=== PATIENT | male | born 1965 | race Caucasian/White ===

== ENCOUNTER 2016-10-11 14:40 | Emergency (ER) | payer OTHER ==
[2016-10-11 15:01] VITALS: BP 187/99
--- NOTE | 2016-10-11 15:21 | ED Physician Documentation ---
History of Present Illness - Stated complaint Stated Complaint: HIGH BP - Chief complaint Chief Complaint: General - History obtained from History obtained from: Patient - Additonal information Additional information: 51-year-old with history of hypertension, previously was on lisinopril/ hydrochlorothiazide and atenolol which managed his blood pressure. Recently he switched from that to losartan 100/hydrochlorothiazide 12.5+ metoprolol. I am not sure of the dose of metoprolol. Because he was having a cough with the lisinopril. Over the last few days has had uncontrolled blood pressures at home in the range of 180/100 with some funny feelings in his chest and head without overt chest pain or shortness of breath. He had labs a couple of days ago which were remarkable only for hypercholesterolemia and mild elevation in BUN without elevation in creatinine. Review of Systems Constitutional: denies: Fever, Chills Cardiac: denies: Chest pain / pressure, Palpitations, Pedal edema, Calf pain Respiratory: denies: Dyspnea, Cough PD PAST MEDICAL HISTORY - Present Medications Home Medications: Ambulatory Orders Medication Instructions Recorded Confirmed amLODIPine [Norvasc] 10 mg PO DAILY #30 tablet 10/11/16 - Allergies Allergies/Adverse Reactions: Allergies Allergy/AdvReac Type Severity Reaction Status Date / Time No Known Drug Allergies Allergy Verified 10/11/16 15:01 PD ED PE NORMAL - Vitals Vital signs reviewed: Yes - General General: Alert and oriented X 3, No acute distress - Cardiac Cardiac: RRR, No murmur - Respiratory Respiratory: No respiratory distress, Clear bilaterally - Abdomen Abdomen: Non tender - Extremities Extremities: No edema - Neuro Neuro: Alert and oriented X 3, Normal speech - Psych Psych: Normal mood, Normal affect Results - Vitals Vitals: Vital Signs - 24 hr 10/11/16 14:58 Temperature 36.6 C Heart Rate 85 Respiratory 16 Rate Blood Pressure 187/99 H O2 Saturation 99 Oxygen O2 Source Room air - EKG (time done) 1523 Rate: Rate (enter#) (80) Rhythm: NSR [place]: Normal Intervals: Normal [place] QRS: Normal Ischemia: Normal ST segments Computer interpretation: Agree with computer PD MEDICAL DECISION MAKING - ED course ED course: 51-year-old gentleman presents with uncontrolled blood pressure on new medications. We discussed putting him back on his old medications but he says the cough with lisinopril was pretty bad and he did not want to do that so I will add amlodipine pending follow-up with his physician. Departure - Departure Disposition: Home, Self Care Clinical Impression: Hypertension Qualifiers: Hypertension type: essential hypertension Qualified Code(s): I10 - Essential ( primary) hypertension Condition: Good Record reviewed to determine appropriate education?: Yes Instructions: Amlodipine, Hypertension Dc Follow-Up: Ronny Mcfarland MD [Primary Care Provider] - Within 1 week Prescriptions: amLODIPine [Norvasc] 10 mg PO DAILY #30 tablet Comments: Continue your current medications for blood pressure and add the amlodipine. Follow-up with Dr. mcfarland this coming Wednesday as scheduled for recheck.
== END 2016-10-11 15:49 | disposition home or self-care (01) ==
LOC: ED 14:40
DX: I10 Essential (primary) hypertension (principal)
CPT/HCPCS: 93005; 99283; 99284

== ENCOUNTER 2016-10-23 08:34 | Outpatient (CLI) | payer OTHER ==
[2016-10-28 22:36] LABS: TEST RESULT REPORT (())
== END 2016-10-23 08:35 | disposition home or self-care (01) ==
LOC: LAB.R 08:34
PROVIDERS: ATTEND Internal Medicine
DX: E29.1 Testicular hypofunction (principal); R53.83 Other fatigue
CPT/HCPCS: 81599; 84402; 84403

== ENCOUNTER 2017-02-19 08:00 | Outpatient (CLI) | payer OTHER | END 2017-02-19 08:01 | disposition home or self-care (01) | LOC: LAB.R 08:00 | PROVIDERS: ATTEND Internal Medicine | DX: R50.9 Fever, unspecified (principal) | CPT/HCPCS: 87275; 87276 ==

== ENCOUNTER 2017-08-04 11:52 | Emergency (ER) | payer OTHER ==
[2017-08-04 13:03] LABS: BASOPHILS % (AUTO) 0.5 %; EOSINOPHILS # (AUTO) 0.2 10^3/uL (0.0-0.7); EOSINOPHILS % (AUTO) 2.1 %; HGB - HEMOGLOBIN 16.4 g/dL (14.0-18.0); LYMPHOCYTES % (AUTO) 27.5 %; MEAN CORPUSCULAR HEMOGLOBIN 30.9 pg (27.0-31.0); MEAN CORPUSCULAR VOLUME 90.7 fL (80.0-94.0); MEAN PLATELET VOLUME 7.4 fL (7.4-11.4); MONOCYTES # (AUTO) 0.5 10^3/uL (0.0-1.0); MONOCYTES % (AUTO) 6.8 %; NEUTROPHILS # (AUTO) 4.7 10^3/uL (1.5-6.6); NEUTROPHILS % (AUTO) 63.1 %; PLT - PLATELET COUNT 209 10^3/uL (130-450); RED CELL DISTRIBUTION WIDTH 14.1 % (12.0-15.0); WHITE BLOOD COUNT 7.4 x10^3/uL (4.8-10.8)
--- NOTE | 2017-08-04 13:09 | XRAY Report ---
Procedure Date: 08/04/2017 Accession Number: [id number] / [id number] Procedure: XR - Chest 2 View X-Ray CPT Code: 24787 FULL RESULT: EXAM: CHEST RADIOGRAPHY EXAM DATE: 08/04/2017 12:55 PM. CLINICAL HISTORY: Chest pain for one week. COMPARISON: None. TECHNIQUE: 2 views. FINDINGS: Lungs/Pleura: No focal opacities evident. No pleural effusion. No pneumothorax. Normal volumes. Mediastinum: Heart and mediastinal contours are unremarkable. Other: Mild thoracic spine degenerative changes. IMPRESSION: No consolidation evident. RADIA
--- NOTE | 2017-08-04 13:13 | ED Physician Documentation ---
PD HPI CHEST PAIN - Stated complaint Stated Complaint: CHEST PX - Chief complaint Chief Complaint: Cardiac - History obtained from History obtained from: Patient - History of Present Illness Timing - onset: How many weeks ago (1-2) Timing - duration: Weeks (has had pains in back intermittently for month or more , but worse the past week. No noted injury directly. Worse with moving, position. No change with eating. No dyspnea. Pain between shoulder blades and wraps around to the front of chest/ribs area.) Timing - details: Gradual onset, Still present (more often the past week and more consistent the past few days.), Intermittant Quality: Aching, Sharp, Pain Location: Left chest, Upper back Radiation: Back Worsened by: Inspiration, Movement. No: Eating, Palpation Associated symptoms: No: Shortness of air, Nausea, Feeling faint / dizzy, General Weakness, Palpitations Similar symptoms before: Has not had sx before Recently seen: Not recently seen Review of Systems Constitutional: denies: Fever, Chills, Myalgias Nose: denies: Rhinorrhea / runny nose, Congestion Throat: denies: Sore throat Cardiac: reports: Chest pain / pressure. denies: Palpitations, Pedal edema, Calf pain Respiratory: denies: Dyspnea, Cough, Wheezing GI: denies: Abdominal Pain, Nausea, Vomiting, Diarrhea : denies: Dysuria, Frequency, Hematuria Skin: denies: Rash, Lesions Musculoskeletal: reports: Back pain. denies: Neck pain, Extremity pain Neurologic: denies: Generalized weakness, Near syncope Endocrine: denies: Weight loss, Easy bruising / bleeding PD PAST MEDICAL HISTORY - Past Medical History Cardiovascular: None Respiratory: None Endocrine/Autoimmune: None GI: None - Present Medications Home Medications: Ambulatory Orders Medication Instructions Recorded Confirmed Dexamethasone [Decadron] 4 mg PO DAILY #5 tablet 08/04/17 Doxazosin Mesylate 2 mg 08/04/17 HYDROcod/ACETAM 5/325 [[place] 5/325] 1 tab PO Q6H PRN #20 tablet 08/04/17 Methocarbamol [Robaxin] 500 mg PO Q6H PRN #25 tablet 08/04/17 Metoprolol Succinate 50 mg BID 08/04/17 08/04/17 Naproxen 375 mg PO BID #20 tablet 08/04/17 Valsartan 160 mg 08/04/17 hydroCHLOROthiazide [Hydrodiuril] 25 mg 08/04/17 - Allergies Allergies/Adverse Reactions: Allergies Allergy/AdvReac Type Severity Reaction Status Date / Time No Known Drug Allergies Allergy Verified 10/11/16 15:01 - Family History Family history: reports: Non contributory PD ED PE NORMAL - Vitals Vital signs reviewed: Yes - General General: Alert and oriented X 3, No acute distress, Well developed/nourished - HEENT HEENT: Pharynx benign - Neck Neck: Supple, no meningeal sign, No adenopathy - Cardiac Cardiac: RRR, No murmur - Respiratory Respiratory: Clear bilaterally, Other (no chestwall tenderness) - Abdomen Abdomen: Normal bowel sounds, Soft, Non tender, Non distended - Derm Derm: Normal color, Warm and dry - Extremities Extremities: No deformity, No tenderness to palpate, Normal ROM s pain, No edema , No calf tenderness / cord - Neuro Neuro: Alert and oriented X 3, No motor deficit, Normal speech Results - Vitals Vitals: Oxygen O2 Source Room air - EKG (time done) 11:57 Rate: Rate (enter#) (64) Rhythm: NSR [place]: Normal Intervals: Normal [place] QRS: Normal Ischemia: Normal ST segments. No: ST elevation c/w ischemia, ST depression - Labs Labs: Laboratory Tests 08/04/17 08/04/17 08/04/17 13:00 13:00 13:00 WBC 7.4 RBC 5.30 Hgb 16.4 Hct 48.1 MCV 90.7 MCH 30.9 MCHC 34.0 RDW 14.1 Plt Count 209 MPV 7.4 Neut # (Auto) 4.7 Lymph # (Auto) 2.0 Dunn # (Auto) 0.5 Eos # (Auto) 0.2 Baso # (Auto) 0.0 Absolute Nucleated RBC 0.00 Nucleated RBC % 0.1 Sodium 139 Potassium 4.0 Chloride 104 Carbon Dioxide 27 Anion Gap 8.0 BUN 17 Creatinine 0.8 Estimated GFR (MDRD) 102 Glucose 97 Calcium 9.5 Total Bilirubin 0.9 AST 26 ALT 35 Alkaline Phosphatase 67 Troponin I < 0.04 Total Protein 7.1 Albumin 4.2 Globulin 2.9 Albumin/Globulin Ratio 1.4 Lipase 26 - Rads (name of study) chest xray Radiology: Prelim report reviewed (arthritic changes in spine. lungs clear. no acute process) PD MEDICAL DECISION MAKING - ED course Complexity details: reviewed results, considered differential, d/w patient - Sepsis Event Vital Signs: Oxygen O2 Source Room air Departure - Departure Disposition: 01 Home, Self Care Clinical Impression: Acute thoracic back pain Qualifiers: Back pain laterality: unspecified Qualified Code(s): M54.6 - Pain in thoracic spine Condition: Stable Record reviewed to determine appropriate education?: Yes Instructions: ED Neck Back Pain General Follow-Up: Ronny Chappell MD [Primary Care Provider] - Prescriptions: Dexamethasone [Decadron] 4 mg PO DAILY #5 tablet HYDROcod/ACETAM 5/325 [[place] 5/325] 1 tab PO Q6H PRN #20 tablet PRN Reason: Pain Methocarbamol [Robaxin] 500 mg PO Q6H PRN #25 tablet PRN Reason: Spasms Naproxen 375 mg PO BID #20 tablet Comments: Your symptoms sound musculoskeletal. Your chest x-ray appears normal lungs. There may be some mild arthritic changes around the spine. This is relatively common however and does not necessarily mean that is the cause of the symptoms. We would treat as musculoskeletal pain with anti-inflammatories of naproxen or ibuprofen 2-3 times daily. Also a steroid anti-inflammatory daily for 5 more days. Add methocarbamol muscle relaxant as it does sound like you are having some muscle spasms at times. Then add Tylenol or hydrocodone if needed for pain. Follow-up with your primary care in about a week, call for an appointment. This should trend down and be improving over the next several days to week. Physical treatment such as chiropractic or massage are also good to try. Discharge Date/Time: 08/04/17 14:13
[2017-08-04 13:16] LABS: ALBUMIN 4.2 g/dL (3.2-5.5); ALBUMIN/GLOBULIN RATIO 1.4 (1.0-2.2); BILIRUBIN,TOTAL 0.9 mg/dL (0.2-1.0); CALCIUM 9.5 mg/dL (8.5-10.3); CREATININE 0.8 mg/dL (0.6-1.2); TOTAL PROTEIN 7.1 g/dL (6.7-8.2)
[2017-08-04] MEDS ORDERED: DEXAMETHASONE 10 MG/ML VIAL PO STA (13:45)
[2017-08-04] MEDS ORDERED: KETOROLAC 30 MG/ML VIAL IM STA (13:45)
[2017-08-04] MEDS ORDERED: ACETAMINOPHEN 325 MG TABLET PO STA (13:46)
[2017-08-04] MEDS ORDERED: CHERRY SYRUP 10 ML UDC PO ONE (14:06)
[2017-08-04 14:12] VITALS: BP 154/80
== END 2017-08-04 14:13 | disposition home or self-care (01) ==
LOC: ED 11:52
DX: M54.6 Pain in thoracic spine (principal); R07.9 Chest pain, unspecified; R94.31 Abnormal electrocardiogram [ECG] [EKG]
CPT/HCPCS: 36415; 71046; 80053; 83690; 84484; 85025; 93005; 96372; 99283; A9270

== ENCOUNTER 2018-09-15 08:40 | Outpatient (CLI) | payer OTHER ==
[2018-09-15 10:02] LABS: BASOPHILS % (AUTO) 0.7 %; EOSINOPHILS # (AUTO) 0.1 10^3/uL (0.0-0.7); HGB - HEMOGLOBIN 16.1 g/dL (14.0-18.0); LYMPHOCYTES # (AUTO) 1.5 10^3/uL (1.5-3.5); LYMPHOCYTES % (AUTO) 32.2 %; MEAN CORPUSCULAR HEMOGLOBIN 29.4 pg (27.0-31.0); MEAN CORPUSCULAR HGB CONC 33.5 g/dL (32.0-36.0); MEAN CORPUSCULAR VOLUME 87.8 fL (80.0-94.0); MEAN PLATELET VOLUME 9.7 fL (7.4-11.4); MONOCYTES # (AUTO) 0.4 10^3/uL (0.0-1.0); MONOCYTES % (AUTO) 8.8 %; NEUTROPHILS # (AUTO) 2.6 10^3/uL (1.5-6.6); NEUTROPHILS % (AUTO) 56.1 %; PLT - PLATELET COUNT 206 10^3/uL (130-450); RED BLOOD COUNT 5.48 10^6/uL (4.70-6.10); RED CELL DISTRIBUTION WIDTH 13.4 % (12.0-15.0); WHITE BLOOD COUNT 4.6 x10^3/uL (4.8-10.8)
[2018-09-15 10:10] LABS: PSA TOTAL 0.24 ng/mL (0.000-2.000)
[2018-09-15 10:15] LABS: ALBUMIN 4.4 g/dL (3.2-5.5); ALBUMIN/GLOBULIN RATIO 1.9 (1.0-2.2); BILIRUBIN,TOTAL 1.1 mg/dL (0.2-1.0); CALCIUM 9.5 mg/dL (8.5-10.3); TOTAL PROTEIN 6.7 g/dL (6.7-8.2)
[2018-09-15 10:27] LABS: HB2 TOTAL 17.4 g/dL; HEMOGLOBIN A1C 0.56 g/dL; HEMOGLOBIN A1C % 5.1 % (4.6-6.2)
[2018-09-15 11:18] LABS: FREE T3 3.32 pg/mL (2.5-3.9)
[2018-09-15 11:53] LABS: THYROID STIMULATING HORMONE 1.94 uIU/mL (0.34-5.60)
[2018-09-15 11:55] LABS: FREE T4 (FREE THYROXINE) 1.12 ng/dL (0.58-1.64)
== END 2018-09-15 08:41 | disposition home or self-care (01) ==
LOC: LAB 08:40
PROVIDERS: ATTEND Family Medicine
DX: I10 Essential (primary) hypertension (principal); R73.9 Hyperglycemia, unspecified; E29.1 Testicular hypofunction; N40.0 Benign prostatic hyperplasia without lower urinary tract symptoms; R53.83 Other fatigue
CPT/HCPCS: 36415; 80053; 83036; 84153; 84403; 84439; 84443; 84481; 85025

== ENCOUNTER 2018-09-30 08:39 | Outpatient (CLI) | payer OTHER ==
[2018-09-30 09:34] LABS: BASOPHILS % (AUTO) 0.4 %; EOSINOPHILS # (AUTO) 0.1 10^3/uL (0.0-0.7); EOSINOPHILS % (AUTO) 1.5 %; HGB - HEMOGLOBIN 16.2 g/dL (14.0-18.0); LYMPHOCYTES # (AUTO) 1.4 10^3/uL (1.5-3.5); LYMPHOCYTES % (AUTO) 26.5 %; MEAN CORPUSCULAR HEMOGLOBIN 30.7 pg (27.0-31.0); MEAN CORPUSCULAR HGB CONC 35.3 g/dL (32.0-36.0); MEAN CORPUSCULAR VOLUME 86.9 fL (80.0-94.0); MONOCYTES # (AUTO) 0.5 10^3/uL (0.0-1.0); MONOCYTES % (AUTO) 9.5 %; NEUTROPHILS # (AUTO) 3.3 10^3/uL (1.5-6.6); NEUTROPHILS % (AUTO) 61.7 %; PLT - PLATELET COUNT 201 10^3/uL (130-450); RED BLOOD COUNT 5.28 10^6/uL (4.70-6.10); RED CELL DISTRIBUTION WIDTH 13.6 % (12.0-15.0); WHITE BLOOD COUNT 5.3 x10^3/uL (4.8-10.8)
[2018-09-30 09:40] LABS: ALBUMIN 4.4 g/dL (3.2-5.5); ALBUMIN/GLOBULIN RATIO 1.8 (1.0-2.2); BILIRUBIN,TOTAL 1.1 mg/dL (0.2-1.0); CALCIUM 9.4 mg/dL (8.5-10.3); TOTAL PROTEIN 6.8 g/dL (6.7-8.2)
[2018-09-30 09:42] LABS: HB2 TOTAL 17.3 g/dL; HEMOGLOBIN A1C 0.55 g/dL; HEMOGLOBIN A1C % 5.1 % (4.6-6.2)
[2018-09-30 10:05] LABS: THYROID STIMULATING HORMONE 2.87 uIU/mL (0.34-5.60)
[2018-09-30 10:07] LABS: FREE T4 (FREE THYROXINE) 1.24 ng/dL (0.58-1.64)
== END 2018-09-30 08:40 | disposition home or self-care (01) ==
LOC: LAB 08:39
PROVIDERS: ATTEND Family Medicine
DX: N40.0 Benign prostatic hyperplasia without lower urinary tract symptoms (principal); R73.9 Hyperglycemia, unspecified; I10 Essential (primary) hypertension; R53.83 Other fatigue; E29.1 Testicular hypofunction
CPT/HCPCS: 36415; 80053; 83036; 84439; 84443; 84481; 85025

== ENCOUNTER 2018-12-20 08:29 | Day surgery (SDC) | payer OTHER ==
[2018-12-20] MEDS ORDERED: fentaNYL 250 MCG/5 ML VIAL IVP ONE (08:30)
[2018-12-20] MEDS ORDERED: MIDAZOLAM 2 MG/2 ML VIAL IVP ONE (08:30)
[2018-12-20] MEDS ORDERED: LACTATED RINGERS 1,000 ML IV ONE (08:36)
[2018-12-20] MEDS ORDERED: ONDANSETRON 4 MG/2 ML VIAL ONE (09:30)
[2018-12-20 10:33] VITALS: BP 131/80
== END 2018-12-20 08:30 | disposition home or self-care (01) ==
LOC: SDS 08:29
PROVIDERS: ATTEND Internal Medicine Gastroenterology
PROC: 0DBN8ZZ Excision of Sigmoid Colon, Via Natural or Artificial Opening Endoscopic (ICD-10-PCS; principal; 2018-12-20 09:45)
DX: Z12.11 Encounter for screening for malignant neoplasm of colon (principal); D12.5 Benign neoplasm of sigmoid colon; K57.30 Diverticulosis of large intestine without perforation or abscess without bleeding; I10 Essential (primary) hypertension; N40.0 Benign prostatic hyperplasia without lower urinary tract symptoms; R60.0 Localized edema
CPT/HCPCS: 45380; J3010; J7120

== ENCOUNTER 2019-07-03 10:23 | Outpatient (CLI) | payer OTHER ==
[2019-07-03 10:44] LABS: BASOPHILS % (AUTO) 0.6 %; EOSINOPHILS # (AUTO) 0.2 10^3/uL (0.0-0.7); EOSINOPHILS % (AUTO) 3.7 %; HGB - HEMOGLOBIN 17.6 g/dL (14.0-18.0); LYMPHOCYTES # (AUTO) 1.8 10^3/uL (1.5-3.5); LYMPHOCYTES % (AUTO) 27.9 %; MEAN CORPUSCULAR HEMOGLOBIN 31.1 pg (27.0-31.0); MEAN CORPUSCULAR HGB CONC 35.3 g/dL (32.0-36.0); MEAN PLATELET VOLUME 9.1 fL (7.4-11.4); MONOCYTES # (AUTO) 0.6 10^3/uL (0.0-1.0); MONOCYTES % (AUTO) 9.2 %; NEUTROPHILS # (AUTO) 3.8 10^3/uL (1.5-6.6); NEUTROPHILS % (AUTO) 58.3 %; PLT - PLATELET COUNT 210 10^3/uL (130-450); RED BLOOD COUNT 5.66 10^6/uL (4.70-6.10); RED CELL DISTRIBUTION WIDTH 13.2 % (12.0-15.0); WHITE BLOOD COUNT 6.6 x10^3/uL (4.8-10.8)
[2019-07-03 11:07] LABS: ALBUMIN 4.5 g/dL (3.2-5.5); ALBUMIN/GLOBULIN RATIO 1.7 (1.0-2.2); ALKALINE PHOSPHATASE 75 IU/L (42-121); ALT ALANINE AMINOTRANSFERASE 34 IU/L (10-60); AST ASPARTATE AMINOTRANSFERASE 22 IU/L (10-42); BUN - BLOOD UREA NITROGEN 21 mg/dL (6-20); CALCIUM 9.4 mg/dL (8.5-10.3); CARBON DIOXIDE - CO2 26 mmol/L (21-32); CHLORIDE 109 mmol/L (101-111); CHOL/HDL RATIO 3.9 (<5.0); CHOLESTEROL 187 mg/dL; CREATININE 0.8 mg/dL (0.6-1.2); GLUCOSE 108 mg/dL (70-100); HDL CHOLESTEROL 48 mg/dL; LDL CHOLESTEROL,CALCULATED 114 mg/dL; LDL/HDL RATIO 2.4 (<3.6); SODIUM 141 mmol/L (135-145); TOTAL PROTEIN 7.1 g/dL (6.7-8.2); VLDL CHOLESTEROL 25 mg/dL
== END 2019-07-03 10:24 | disposition home or self-care (01) ==
LOC: LAB 10:23
PROVIDERS: ATTEND Family Medicine
DX: N40.0 Benign prostatic hyperplasia without lower urinary tract symptoms (principal); R73.9 Hyperglycemia, unspecified; E29.1 Testicular hypofunction; Z12.5 Encounter for screening for malignant neoplasm of prostate; E66.9 Obesity, unspecified; I10 Essential (primary) hypertension
CPT/HCPCS: 36415; 80053; 80061; 83721; 84153; 84443; 85025

== ENCOUNTER 2019-07-20 08:16 | Outpatient (CLI) | payer OTHER ==
[2019-07-20] MEDS ORDERED: IOVERSOL 320 100 ML VIAL IVP ONE ×2 (08:29→10:03)
--- NOTE | 2019-07-20 13:39 | CT Report ---
Reason: TINNITUS Procedure Date: 07/20/2019 Accession Number: [id number] / [id number] Procedure: CT - ANGIO HEAD W/WO CPT Code: Final Report FULL RESULT: PROCEDURE: ANGIO HEAD W/WO INDICATIONS: TINNITUS CONTRAST: IV CONTRAST: Optiray 320 ml: 100 PO CONTRAST: *NO PO CONTRAST TECHNIQUE: Precontrast 4.5 mm thick angled axial sections acquired from the foramen magnum to the vertex. After the administration of intravenous contrast, 1 mm thick sections acquired through the [place] of [place]. Postcontrast 4.5 mm thick sections then re-acquired from the foramen magnum to the vertex. 3-dimensional knvakco-mjfseiulr-hoikekmbpq (MIP) and/or volume rendering reformats were acquired of the central intracranial vasculature. For radiation dose reduction, the following was used: automated exposure control, adjustment of mA and/or kV according to patient size. COMPARISON: CT angiography neck 07/20/2019 FINDINGS: Image quality: Excellent. Anterior circulation: Intracranial internal carotid arteries are normal in size and flow. The flow within the paired anterior cerebral arteries is normal and symmetric. The flow within the middle cerebral arteries is normal and symmetric. The anterior communicating artery is seen. No aneurysms are seen. Posterior circulation: Visualized portions of the vertebral arteries demonstrate normal caliber, and join to form a normal appearing basilar artery. Flow within the posterior cerebral arteries is normal and symmetric. No aneurysms are seen. CSF spaces: Ventricles are normal in size and shape. Basal cisterns are patent. No extra-axial fluid collections. Brain: No midline shift. No intracranial bleeds or masses. Saeed-white matter interface appears intact. Skull and face: Calvarium and facial bones appear intact, without suspicious lesions. Sinuses: Visualized sinuses demonstrate bilateral maxillary sinus mucous retention cysts. IMPRESSION: 1. No areas of hemodynamically significant stenosis, vascular occlusion or aneurysmal dilation within the anterior posterior circulations. Reviewed by: Jazmine Goel MD on 07/20/2019 1:38 PM PDT Approved by: Jazmine Goel MD on 07/20/2019 1:38 PM PDT Station ID: [id number]
--- NOTE | 2019-07-20 14:03 | CT Report ---
Reason: TINNITUS Procedure Date: 07/20/2019 Accession Number: [id number] / [id number] Procedure: CT - ANGIO NECK W CPT Code: Final Report FULL RESULT: PROCEDURE: ANGIO NECK W INDICATIONS: TINNITUS CONTRAST: IV CONTRAST: Optiray 320 ml: 100 PO CONTRAST: *NO PO CONTRAST TECHNIQUE: After the administration of intravenous contrast, 1.5 mm axial sections acquired from the aortic arch to the [place] of [place]. Coronal 3-D maximum intensity projection (MIP) and/or volume rendering reformats were then performed. For radiation dose reduction, the following was used: automated exposure control, adjustment of mA and/or kV according to patient size. COMPARISON: MRA head and neck 07/20/2019 FINDINGS: Image quality: Excellent. The origins of the left and right common, internal and exterrnal carotid arteries demonstrate no areas of hemodynamically significant stenosis, vascular occlusion or aneurysmal dilation. Origin of the left vertebral artery and right vertebral artery demonstrate no areas of hemodynamically significant stenosis, vascular occlusion or aneurysmal dilation. There is incidental note of apparent right subclavian. Limited, visualized portions of the subclavian vasculature are unremarkable. IMPRESSION: 1. There are no areas of hemodynamically significant stenosis, vascular occlusion or aneurysmal dilation within the neck vasculature. The estimate of stenosis included in the report of the imaging study was calculated using the NASCET method Reviewed by: Jazmine Goel MD on 07/20/2019 2:01 PM PDT Approved by: Jazmine Goel MD on 07/20/2019 2:01 PM PDT Station ID: [id number]
== END 2019-07-20 08:17 | disposition home or self-care (01) ==
LOC: DI 08:16
PROVIDERS: ATTEND Family Medicine
DX: H93.19 Tinnitus, unspecified ear (principal)
CPT/HCPCS: 70496; 70498; Q9967

== ENCOUNTER 2019-09-06 12:17 | Outpatient (CLI) | payer OTHER ==
[2019-09-06 12:52] LABS: % IRON SATURATION 21 % (20-50); IRON 80 ug/dL (45-182); TOTAL IRON BINDING CAPACITY 378 ug/dL (250-450); TRANSFERRIN 270 mg/dL (180-329)
[2019-09-06 13:00] LABS: THYROID STIMULATING HORMONE 1.52 uIU/mL (0.34-5.60)
== END 2019-09-06 12:18 | disposition home or self-care (01) ==
LOC: LAB 12:17
PROVIDERS: ATTEND Physician Assistant
DX: L65.9 Nonscarring hair loss, unspecified (principal)
CPT/HCPCS: 36415; 82728; 83540; 84443; 84466

== ENCOUNTER 2019-10-11 19:30 | Outpatient (CLI) | payer OTHER | END 2019-10-11 23:59 | disposition home or self-care (01) | LOC: SC 19:30 | PROVIDERS: ATTEND Internal Medicine Pulmonary Disease | DX: G47.33 Obstructive sleep apnea (adult) (pediatric) (principal) | CPT/HCPCS: 95806 ==

== ENCOUNTER 2019-10-13 16:58 | Outpatient (CLI) | payer OTHER ==
[2019-10-13 17:15] LABS: BASOPHILS % (AUTO) 0.4 %; EOSINOPHILS # (AUTO) 0.1 10^3/uL (0.0-0.7); EOSINOPHILS % (AUTO) 1.3 %; LYMPHOCYTES # (AUTO) 2.1 10^3/uL (1.5-3.5); LYMPHOCYTES % (AUTO) 26.6 %; MEAN CORPUSCULAR HEMOGLOBIN 31.3 pg (27.0-31.0); MEAN CORPUSCULAR HGB CONC 35.9 g/dL (32.0-36.0); MEAN CORPUSCULAR VOLUME 87.1 fL (80.0-94.0); MEAN PLATELET VOLUME 9.4 fL (7.4-11.4); MONOCYTES # (AUTO) 0.7 10^3/uL (0.0-1.0); MONOCYTES % (AUTO) 8.9 %; NEUTROPHILS # (AUTO) 4.8 10^3/uL (1.5-6.6); NEUTROPHILS % (AUTO) 62.5 %; PLT - PLATELET COUNT 223 10^3/uL (130-450); RED BLOOD COUNT 5.44 10^6/uL (4.70-6.10); WHITE BLOOD COUNT 7.7 x10^3/uL (4.8-10.8)
[2019-10-13 17:40] LABS: ALBUMIN/GLOBULIN RATIO 2.2 (1.0-2.2); BILIRUBIN,DIRECT 0.1 mg/dL (0.1-0.5); CALCIUM 9.8 mg/dL (8.5-10.3); CRP - C-REACTIVE PROTEIN 1.7 mg/dL (0-1.0); TOTAL PROTEIN 7.3 g/dL (6.7-8.2)
== END 2019-10-13 16:59 | disposition home or self-care (01) ==
LOC: LAB 16:58
PROVIDERS: ATTEND Physician Assistant
DX: L65.9 Nonscarring hair loss, unspecified (principal)
CPT/HCPCS: 36415; 80053; 80076; 85025; 85651; 86140

== ENCOUNTER 2019-10-20 12:39 | Outpatient (CLI) | payer OTHER ==
--- NOTE | 2019-10-20 13:28 | SLEEP CARE CONSULTATION ---
Information from patient questionnaire entered by Tutu Giron. I have reviewed and concur with the information entered by Tutu Giron. This document represents the service I personally performed and the decisions made by me, Ally Maddox ARNP. History of Present Illness Service Date and Time: 10/20/2019 1239 Initial Lenox Sleepiness Scale score: 8 (in 2019) Current Lenox Sleepiness Scale score: 5 Additional HPI information: DEEPAK HARRIS returns for follow up and results of the recently performed home sleep study. I explained the pathophysiology behind obstructive sleep apnea. We then spent quite a bit of time discussing different treatment options. For mild obstructive sleep apnea, surgery and oral appliance are alternatives to nasal CPAP therapy but in moderate or severe cases, nasal CPAP is the most effective and reliable treatment. After some discussion, the patient decided he would like to take some time to think about his decision. Patient counseled not drink alcohol less than 4 hours before bedtime as it can increase snoring and apnea. Patient was cautioned about risks of drowsy driving until sleepiness symptoms resolve. Sleep Study - Results Type of Sleep Study: Home sleep study Prior sleep studies: Yes ([facility], used a CPAP) Year and Where: 2005 - [facility] in [place], [place] - Dr. Malone Polysomnography/Home Sleep Study results: SLEEP TIME AND EFFICIENCY: The sleep study recording began at 12:12:33 AM and ended at 08:57:16 AM. Total recording time was 524.7 minutes. The total sleep time was 472.0 minutes. The sleep efficiency was 90.0 percent. The patient spent 0.2 minutes supine, and spent 471.8 minutes non-supine. The patients own estimate of sleep time was 7.00 hours. RESPIRATORY DATA: The AHI in this report is indexed to sleep time based on actigraphy. The AASM defines this as SHA. The AHI on this type 3 Home Sleep Study may understate the AHI determined on a type 1 or 2 study, since EEG is not monitored resulting in the inability to score non-desaturating hypopneas. Based on 4% Calculation: The AHI4% calculation of 7.9 per hour of recording time was based on a total of 55 scored apneas and 7 scored hypopneas with 4% desaturations. The patient did not sleep supine. Oxygen Summary: Patient's baseline O2 saturation was 93.8 %. The patient spent 2.0 minutes at an oxygen saturation less than 90%, and 0.0 minutes less than 85%. The desaturation index was 6.4 events per hour sleep time. The lowest saturation was 86.9%. SNORING: The percent of the study time spent snoring was 0.0 %. The Snoring Count was 1 . The Snoring Index was 0.1 . PULSE RATE REVIEW: The mean heart rate was 53 beats per minute. The rate ranged from a low of 39 to a high of 132 beats per minute. DIAGNOSIS CODE: This patient has mild obstructive sleep apnea associated wtih mild hypoxia. Allergies and Home Medications Drug allergies reviewed: Yes (NKDA) Home medication list reviewed: Yes (no changes) Review of Systems Review of systems same as previous: Yes (no changes) Physical Exam Heart Rate: 71 O2 Saturation: 98 Height: 6 ft 3 in Weight: 292 lb Body Mass Index: 36.5 BMI Classification: Obese Impression and Plan 1. Obstructive Sleep Apnea-Hypopnea Syndrome, mild, with lowest oxygen saturation of 86.9%. Obviously this is the cause of the patients symptoms of unrefreshed sleep, and excessive daytime sleepiness. Positive pressure therapy could benefit his hypertension and reduce risks for cardiovascular or cerebrovascular events. I discussed the types of therapy with CPAP being recommended. He may have worse apnea on his back but he does not like to sleep on his back but still has mild obstructive sleep apnea non-supine. I discussed in detail that he could look at getting an oral appliance which he would have to see an accredited dentist and have a follow up in 3 months to check for effectiveness of treatment with a nother sleep study if his symptoms are controlled. I discussed in detail the use of CPAP therapy and how it will benefit his whole health including his hypertension. Compliance guidelines for continuing CPAP also reviewed. Because the apnea can be more severe supine, I instructed to avoid sleeping supine using pillow positioning. Patient also expressed his desire to lose 100 pounds. We discussed that this could positively affect his severity of apnea but another study may be needed to reevaluate in that eventuality. Patient did not want to decide today. I gave him [facility] brochures for PAP tips and Non PAP treatments to review to help him make a decision. I advised him that I would be happy to start him on the CPAP, he would just need to call the office and let us know he wants to start CPAP therapy and a prescription would be sent to the DME supplier of his choice. A list of DME suppliers was given and explained to patient by office staff upon discharge from office. * Patient to call with decision on his choice of therapy. * Attempt to lose weight. * Avoid alcohol consumption near bedtime. * Avoid supine sleep. * The patient is again cautioned about driving until sleepiness completely re solves. * Return in 1-2 months for further discussion or in one month after CPAP obtained. I will assess response to therapy and compliance at that time. Visit Type: In Office Time Spent with Patient (minutes): 17 Provider Statement: I spent 100% of the Face to Face Visit with the patient with greater than 50% spent counseling the patient and coordination of care.
== END 2019-10-20 12:40 | disposition home or self-care (01) ==
LOC: SC 12:39
PROVIDERS: ATTEND Nurse Practitioner Family
DX: G47.33 Obstructive sleep apnea (adult) (pediatric) (principal); E66.9 Obesity, unspecified; Z68.36 Body mass index [BMI] 36.0-36.9, adult
CPT/HCPCS: 99212; 99213

== ENCOUNTER 2020-04-29 11:11 | Outpatient (CLI) | payer OTHER ==
[2020-04-29 11:28] LABS: BASOPHILS % (AUTO) 0.5 %; EOSINOPHILS # (AUTO) 0.1 10^3/uL (0.0-0.7); EOSINOPHILS % (AUTO) 1.8 %; HCT - HEMATOCRIT 48.9 % (42.0-52.0); LYMPHOCYTES # (AUTO) 1.5 10^3/uL (1.5-3.5); LYMPHOCYTES % (AUTO) 27.4 %; MEAN CORPUSCULAR HEMOGLOBIN 30.6 pg (27.0-31.0); MEAN CORPUSCULAR HGB CONC 34.8 g/dL (32.0-36.0); MEAN CORPUSCULAR VOLUME 87.9 fL (80.0-94.0); MEAN PLATELET VOLUME 9.1 fL (7.4-11.4); MONOCYTES # (AUTO) 0.5 10^3/uL (0.0-1.0); MONOCYTES % (AUTO) 8.2 %; NEUTROPHILS # (AUTO) 3.4 10^3/uL (1.5-6.6); NEUTROPHILS % (AUTO) 61.9 %; PLT - PLATELET COUNT 219 10^3/uL (130-450); RED BLOOD COUNT 5.56 10^6/uL (4.70-6.10); RED CELL DISTRIBUTION WIDTH 13.8 % (12.0-15.0); WHITE BLOOD COUNT 5.5 x10^3/uL (4.8-10.8)
[2020-04-29 11:43] LABS: ALBUMIN 4.9 g/dL (3.2-5.5); CALCIUM 9.5 mg/dL (8.5-10.3); CREATININE 0.9 mg/dL (0.6-1.2); POTASSIUM 3.9 mmol/L (3.5-5.0); TOTAL PROTEIN 7.4 g/dL (6.7-8.2)
[2020-04-29 11:59] LABS: THYROID STIMULATING HORMONE 2.06 uIU/mL (0.34-5.60)
[2020-04-29 12:24] LABS: ESTIMATED AVERAGE GLUCOSE 88 mg/dL (70-100); HEMOGLOBIN A1c% 4.7 % (4.27-6.07)
== END 2020-04-29 11:12 | disposition home or self-care (01) ==
LOC: LAB 11:11
PROVIDERS: ATTEND Family Medicine
DX: I10 Essential (primary) hypertension (principal); L65.9 Nonscarring hair loss, unspecified; N40.0 Benign prostatic hyperplasia without lower urinary tract symptoms; R73.9 Hyperglycemia, unspecified; E66.9 Obesity, unspecified
CPT/HCPCS: 36415; 80053; 83036; 84153; 84443; 85025

== ENCOUNTER 2020-11-05 13:58 | Outpatient (CLI) | payer OTHER ==
[2020-11-05 14:13] LABS: BASOPHILS % (AUTO) 0.5 %; EOSINOPHILS # (AUTO) 0.1 10^3/uL (0.0-0.7); EOSINOPHILS % (AUTO) 2.5 %; HCT - HEMATOCRIT 47.8 % (42.0-52.0); HGB - HEMOGLOBIN 16.6 g/dL (14.0-18.0); LYMPHOCYTES # (AUTO) 1.5 10^3/uL (1.5-3.5); LYMPHOCYTES % (AUTO) 26.5 %; MEAN CORPUSCULAR HEMOGLOBIN 30.3 pg (27.0-31.0); MEAN CORPUSCULAR HGB CONC 34.7 g/dL (32.0-36.0); MEAN CORPUSCULAR VOLUME 87.4 fL (80.0-94.0); MEAN PLATELET VOLUME 9.1 fL (7.4-11.4); MONOCYTES # (AUTO) 0.4 10^3/uL (0.0-1.0); MONOCYTES % (AUTO) 7.1 %; NEUTROPHILS # (AUTO) 3.6 10^3/uL (1.5-6.6); NEUTROPHILS % (AUTO) 63.2 %; PLT - PLATELET COUNT 209 10^3/uL (130-450); RED BLOOD COUNT 5.47 10^6/uL (4.70-6.10); RED CELL DISTRIBUTION WIDTH 13.2 % (12.0-15.0); WHITE BLOOD COUNT 5.7 x10^3/uL (4.8-10.8)
[2020-11-05 14:22] LABS: CALCIUM 9.4 mg/dL (8.5-10.3); CREATININE 0.9 mg/dL (0.6-1.2); POTASSIUM 4.2 mmol/L (3.5-5.0)
[2020-11-05 15:02] LABS: PSA TOTAL 0.12 ng/mL (0.000-2.000)
== END 2020-11-05 13:59 | disposition home or self-care (01) ==
LOC: LAB 13:58
PROVIDERS: ATTEND Family Medicine
DX: I10 Essential (primary) hypertension (principal); L63.9 Alopecia areata, unspecified; N52.9 Male erectile dysfunction, unspecified
CPT/HCPCS: 36415; 80048; 84153; 84403; 85025

== ENCOUNTER 2022-03-23 12:05 | Outpatient (CLI) | payer MEDICAID ==
[2022-03-23 12:19] LABS: BASOPHILS % (AUTO) 0.7 %; EOSINOPHILS # (AUTO) 0.2 10^3/uL (0.0-0.7); EOSINOPHILS % (AUTO) 2.5 %; HCT - HEMATOCRIT 48.4 % (42.0-52.0); HGB - HEMOGLOBIN 16.9 g/dL (14.0-18.0); LYMPHOCYTES # (AUTO) 1.7 10^3/uL (1.5-3.5); LYMPHOCYTES % (AUTO) 28.2 %; MEAN CORPUSCULAR HEMOGLOBIN 30.6 pg (27.0-31.0); MEAN CORPUSCULAR HGB CONC 34.9 g/dL (32.0-36.0); MEAN CORPUSCULAR VOLUME 87.7 fL (80.0-94.0); MONOCYTES # (AUTO) 0.5 10^3/uL (0.0-1.0); MONOCYTES % (AUTO) 7.7 %; NEUTROPHILS # (AUTO) 3.6 10^3/uL (1.5-6.6); NEUTROPHILS % (AUTO) 60.6 %; PLT - PLATELET COUNT 226 10^3/uL (130-450); RED BLOOD COUNT 5.52 10^6/uL (4.70-6.10); RED CELL DISTRIBUTION WIDTH 13.1 % (12.0-15.0)
[2022-03-23 12:42] LABS: ALBUMIN 4.7 g/dL (3.2-5.5); ALBUMIN/GLOBULIN RATIO 1.8 (1.0-2.2); BILIRUBIN,TOTAL 0.8 mg/dL (0.2-1.0); CALCIUM 9.9 mg/dL (8.5-10.3); POTASSIUM 4.4 mmol/L (3.5-5.0); TOTAL PROTEIN 7.3 g/dL (6.7-8.2)
== END 2022-03-23 12:06 | disposition home or self-care (01) ==
LOC: LAB 12:05
PROVIDERS: ATTEND Family Medicine
DX: I10 Essential (primary) hypertension (principal); E29.1 Testicular hypofunction; R53.83 Other fatigue
CPT/HCPCS: 36415; 80053; 84403; 85025

== ENCOUNTER 2022-10-21 10:45 | Outpatient (CLI) | payer MEDICAID ==
[2022-10-21 10:58] LABS: BASOPHILS % (AUTO) 0.7 %; EOSINOPHILS # (AUTO) 0.2 10^3/uL (0.0-0.7); EOSINOPHILS % (AUTO) 3.9 %; HCT - HEMATOCRIT 46.7 % (42.0-52.0); HGB - HEMOGLOBIN 16.3 g/dL (14.0-18.0); LYMPHOCYTES # (AUTO) 1.6 10^3/uL (1.5-3.5); LYMPHOCYTES % (AUTO) 27.4 %; MEAN CORPUSCULAR HGB CONC 34.9 g/dL (32.0-36.0); MEAN PLATELET VOLUME 8.9 fL (7.4-11.4); MONOCYTES # (AUTO) 0.5 10^3/uL (0.0-1.0); MONOCYTES % (AUTO) 8.4 %; NEUTROPHILS # (AUTO) 3.5 10^3/uL (1.5-6.6); NEUTROPHILS % (AUTO) 59.4 %; PLT - PLATELET COUNT 226 10^3/uL (130-450); RED BLOOD COUNT 5.43 10^6/uL (4.70-6.10); RED CELL DISTRIBUTION WIDTH 12.9 % (12.0-15.0); WHITE BLOOD COUNT 5.9 x10^3/uL (4.8-10.8)
[2022-10-21 11:30] LABS: ALBUMIN 4.8 g/dL (3.2-5.5); ALBUMIN/GLOBULIN RATIO 2.2 (1.0-2.2); BILIRUBIN,TOTAL 0.5 mg/dL (0.2-1.0); CALCIUM 9.6 mg/dL (8.5-10.3); CREATININE 0.9 mg/dL (0.6-1.3); POTASSIUM 3.8 mmol/L (3.5-4.5)
== END 2022-10-21 10:46 | disposition home or self-care (01) ==
LOC: LAB 10:45
PROVIDERS: ATTEND Family Medicine
DX: I10 Essential (primary) hypertension (principal); E29.1 Testicular hypofunction
CPT/HCPCS: 36415; 80053; 83001; 83002; 84403; 85025

== ENCOUNTER 2023-06-10 14:59 | Outpatient (CLI) | payer BC, MEDICAID ==
--- NOTE | 2023-06-10 15:42 | Sleep Patient Instructions ---
Sleep Center Visit Summary - Patient Visit Information Reason for Visit: Initial consultation to establish care - Patient Instructions Additional Instructions: You will continue with CPAP therapy with pressure changed to 4-8 cmH2O. I have ordered another sleep study and will see you in the office after the next study to go over the results. We encourage you to continue to try to lose weight. Please follow up with the sleep care office after the sleep study. - Clinic Information Contact: [facility] [address] [place] [id number] [email or web address] T: [phone]
--- NOTE | 2023-06-10 15:53 | SLEEP CARE CONSULTATION ---
Information from patient questionnaire entered by Lena Naik. I have reviewed and concur with the information entered by Lena Naik. This document represents the service I personally performed and the decisions made by me, Ally Maddox ARNP. History of Present Illness Service Date and Time: 06/10/2023 1459 Reason for Visit: New patient, Previously diagnosed sleep apnea, sleep apnea on CPAP therapy, Re-establish care Chief Complaint: reports: Unrefreshed sleep, Snoring, Excessive daytime sleepiness, Fatigue, Frequent awakenings at night Date of Onset: YR Usual bedtime: 2129 Time it takes to fall asleep: UP TO 60MINS Snores at night: Yes Observed to quit breathing while asleep: Yes Sleeps alone due to snoring: Yes Number of times waking at night: 4 Reasons for waking at night: reports: Choking, Snoring, Gasping for air, Bathroom Toss, Turn, or Twitch while sleeping: Yes Recalls having dreams: Yes Usually gets out of bed at: 0630 Feels refreshed in the morning: No Morning headache: No Sleepy or fatigued during the day: Yes Ever fallen asleep while driving: No Takes day naps: No Dreams during day naps: No Prior sleep studies: Yes ([facility], used a CPAP) Year and Where: 2005 - [facility] in [place], [place] - Dr. Malone; [facility] 10/11/2019 Additional HPI information: DEEPAK HARRIS was previously diagnosed on 10/11/2019 to have mild, AHI 7.9, obstructive sleep apnea-hypopnea syndrome, last seen in our office in 10/2019 and comes in today to re-establish care for CPAP therapy. He has not been using his CPAP regularly for a year or more. - Parasomnia Symptoms Ever been unable to move upon waking from sleep: No Walks in sleep: No Talks in sleep: Yes Bothered by creepy, crawly, restless sensations in legs: No Problems with memory or concentration: Yes CPAP Compliance Data - Data Reviewed with Patient Average duration of nightly device use: 1 hour 24 minutes Compliance rate %: 0 ( days used last) Current pressure setting (cmH2O): 4-15 Average residual AHI: 17.1 Central apnea: 0 Obstructive apnea: 8.5 Hypopnea: 7.9 Average large leak: 10.8 L/min Compliance data discussion: He used to use a full face mask but got and tried a nasal mask that cups the nose and it felt too high, he could not tolerate the pressure. 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 Patient is and lives in . Have you smoked in the past 12 months: No Alcohol use: Yes Alcohol amount and frequency: 0-6 PER WEEK Caffeine use: Yes Caffeine amount and frequency: 2-6 PER WEEK Family History Family history of sleep disordered breathing: Yes Family Hx Sleep Apnea: Father: Snoring, Sibling: Snoring, Sleep apnea - Untreated Allergies and Home Medications Known drug allergies: No Drug allergies reviewed: Yes Home medication list reviewed: Yes (as listed) Allergy and home medication list: Allergies No Known Drug Allergies Allergy (Verified 06/08/23 10:28) Home Medications Medication Instructions Recorded Confirmed Last Taken Type Metoprolol Succinate 50 mg BID 08/04/17 06/10/23 12/19/18 07:30 History hydroCHLOROthiazide [Hydrodiuril] 25 mg DAILY 08/04/17 06/10/23 12/19/18 07:30 History Review of Systems Weight gain over past 5 years: 100 Weight loss over past 5 years: 100 Cardiovascular: reports: high blood pressure Gastrointestinal: denies: heartburn Urinary: reports: frequency Psychiatric: denies: anxiety, depression Ear/Nose/Throat: reports: tonsillectomy Endocrine: reports: increased appetite Musculoskeletal: reports: joint pain, back pain, muscle pain or cramping, mobility problems Physical Exam Vital signs obtained and entered by: LENA Crespo MA Blood Pressure: 172/106 (RIGHT ARM) Cuff size: long Heart Rate: 75 O2 Saturation: 96 Height: 6 ft 3 in Weight: 367 lb 3.2 oz Body Mass Index: 45.8 BMI Classification: Morbidly Obese Neck circumference: 20.5 Heart: regular rate and rhythm Lungs: clear bilaterally Impression and Plan 1. Obstructive Sleep Apnea-Hypopnea Syndrome, mild, with poor treatment compliance and poor apnea control. He started feeling really well over a year ago and stopped using his CPAP. Recently he began feeling poorly again and decided to try using his CPAP again since he felt well when using it. He tried to use the CPAP a few nights ago and the pressure was too high, he could not tolerate the high pressure. He used to use a full face mask but was only able to find an over the nose nasal mask to use. He says he lost 100 pounds of weight and then put it all back on. Since he has not been using his CPAP regularly and there has been a weight change, I would like to obtain a new baseline and will have him do another sleep study. He will followup in the office after the sleep study. In the meantime I will adjust his pressure to 4-8 cmH2O and have him try using it at a lower pressure to see if he can tolerate the lower pressure and get more used to the CPAP again. He voiced understanding and agreement with plan of care. Patient's apnea severity and rationale for treatment to reduce apnea, improve sleep quality and reduce cardiovascular and cerebrovascular events was reviewed. I also reviewed the benefit of consistent device use of CPAP for hypertension. 2. Obesity, unspecified. Currently patients BMI is 45.8. Obesity increases the risk of apnea, CPAP pressure requirements and overall health risks especially cardiovascular and diabetes. Thus patient is advised to lose weight. 3. Elevated blood pressure reading in patient with hypertension. His blood pressure reading was 172/106 initially. He denied feeling unwell. He had no complaints of chest pain, shortness of breath, headaches or dizziness. * Change auto CPAP pressure to 4-8 cmH2O * PSG to verify diagnosis and severity * Notify me if snoring with mask or feeling that the pressure is too much or too little * Attempt to lose weight * Call this office if any problems using CPAP * Return for follow up after sleep study, or sooner if concerns arise Adjust device pressure to (cmH2O): 4-8 Counseling Topics: Weight loss health impact Follow up with Sleep Care in: other (after sleep study) Plan: PSG/HST and follow up Visit Type: In Office Time Spent with Patient (minutes): 33 Provider Statement: I spent 100% of the Face to Face Visit with the patient with greater than 50% spent counseling the patient and coordination of care.
[2023-06-10 15:54] VITALS: BP 172/106; O2SAT 96
== END 2023-06-10 15:00 | disposition home or self-care (01) ==
LOC: SC 14:59
PROVIDERS: ATTEND Nurse Practitioner Family
DX: G47.33 Obstructive sleep apnea (adult) (pediatric) (principal); E66.01 Morbid (severe) obesity due to excess calories; Z68.42 Body mass index [BMI] 45.0-49.9, adult
CPT/HCPCS: 99203; 99212